=== PATIENT | female | born 1945 | race Caucasian/White ===

== ENCOUNTER → 2016-05-31 | Outpatient (CLI) | payer OTHER ==
--- NOTE | ~2016-05-31 | MY11 ---
[facility] A Service of [facility] RADIOLOGY TEXT RESULTS PATIENT: HILDA ALAMO LOCATION: [facility] : 45 UNIT #: [id number] AGE: [address]: Jean Paul Thompson MD SEX: F ORDER DR: [id number] [facility] [address] [place], [place] [address] [id number] O MR#: [id number] Acc #: [id number] NAME: HILDA ALAMO : 1945 SEX: F STUDY DATE/TIME: 05/31/2016 9:15 UNIT: [facility] ROOM: STUDY DESCRIPTION: MY Mammogram Screening Dig Les Attending Physician: Jean Paul Thompson M.D. Ordering Physician: Jean Paul Thompson M.D. Primary Care Physician: Jean Paul Thompson M.D. MEDICAL IMAGING REPORT This report is preliminary unless electronic signature is present EXAM Bilateral digital screening mammogram with CAD device, 05/31/2016. HISTORY Routine screening. FINDINGS Digital imaging of each breast was completed utilizing standard craniocaudal and mediolateral-oblique projections. Review and interpretation of digital mammograms include a second review in conjunction with FDA-approved CAD device. There is an overall increase in the parenchymal presentation bilaterally with a generalized fibronodular pattern in each breast. There are no breast masses and I see no asymmetry in the parenchymal presentation. There are no suspicious microcalcifications and I see no architectural disturbance. IMPRESSION Benign mammogram. One-year followup recommended. Patients over the age of 40 are entered into a reminder system with target due date for the next mammogram. A result letter will also be sent to the patient. BIRADS: 2 Benign finding Dictated by... Kyler Stewart M.D. THIS IS AN ELECTRONICALLY VERIFIED REPORT Kyler Stewart M.D. at 06/01/2016 8:28 AM [facility] A Service [facility] RADIOLOGY TEXT RESULTS PATIENT: HILDA ALAMO LOCATION: [facility] : 45 UNIT #: [id number] AGE: [address]: Jean Paul Thompson MD SEX: F ORDER DR: Amelia TD: 05/31/2016 12:16 JOB #: [id number] MEDICAL IMAGING REPORT Page 1 of 1 COPY
== END | disposition home or self-care (01) ==
LOC: CWCC 08:48
DX: Z12.31 Encounter for screening mammogram for malignant neoplasm of breast (principal)
CPT/HCPCS: G0202